=== PATIENT | female | born 1985 | race Caucasian/White ===

== ENCOUNTER 2025-03-24 23:48 | Emergency (ER) | payer MEDICAID ==
[~2025-03-24] VITALS: Ht 162.6 cm; Wt 74.0 kg
[2025-03-24 23:58] VITALS: O2SAT 100
[2025-03-25] MEDS: KETOROLAC 15MG/ML VIAL IM ONE (00:45)
[2025-03-25 01:14] LABS: CLARITY URINE CLEAR (CLEAR); COLOR URINE YELLOW (YELLOW); GLUCOSE URINE NEGATIVE (NEGATIVE); KETONES URINE NEGATIVE (NEGATIVE); LEUKOCYTE ESTERASE URINE NEGATIVE (NEGATIVE); NITRITE URINE NEGATIVE (NEGATIVE); OCCULT BLOOD URINE TRACE (NEGATIVE); PH URINE 5.5 (4.5-8.0); PROTEIN URINE NEGATIVE (NEGATIVE); SPECIFIC GRAVITY URINE 1.007 (1.005-1.030); UROBILINOGEN URINE 0.2 E.U./dL (0.2-1.0)
[2025-03-25] MEDS: ONDANSETRON HCL 4MG TABLET PO ONE (01:20)
[2025-03-25 01:49] LABS: BACTERIA URINE NONE SEEN; RBC URINE 0-2 /hpf (0-2); SQUAMOUS EPITHELIAL CELL URINE 1+ /lpf (RARE/1+); WBC URINE 0-2 /hpf (0-2)
[2025-03-25] MEDS ORDERED: CEPH500C2 MT (01:56)
[2025-03-25 02:10] VITALS: BP 129/77; PULSE 87; RESP 18; TEMP 36.8; O2SAT 100
== END 2025-03-25 02:15 | disposition home or self-care (01) ==
LOC: ER 23:48
DX: N39.0 Urinary tract infection, site not specified (principal); R10.A3 Flank pain, bilateral
CPT/HCPCS: 99283; 81025; 81003; 96372; J1885; Q0162

== ENCOUNTER 2025-04-24 16:56 | Emergency (ER) | payer MEDICAID ==
[~2025-04-24] VITALS: Ht 162.6 cm; Wt 73.0 kg
[~2025-04-24 16:56] MED LIST: CEPH500C2 MT
[2025-04-24 16:59] VITALS: TEMP 36.7; O2SAT 99
[2025-04-24 17:28] VITALS: O2SAT 98
[2025-04-24 22:09] VITALS: BP 123/70; PULSE 81; RESP 18
[2025-04-24] MEDS: ONDANSETRON 4MG ODT PO ONE (22:09)
[2025-04-24] MEDS: KETOROLAC 15MG/ML VIAL IM ONE (22:09)
[2025-04-24 22:19] LABS: BASOPHILS % 0.6 % (0.0-2.0); EOSINOPHILS % 1.6 % (0.0-5.0); HEMATOCRIT. 38.7 % (36.0-48.0); HEMOGLOBIN. 13.1 g/dL (12.0-16.0); LYMPHOCYTES % 36.5 % (20.0-50.0); MEAN PLATELET VOLUME 8.6 fl (7.4-10.4); MONOCYTES % 5.7 % (2.0-8.0); NEUTROPHILS % 55.6 % (40.0-76.0); PLATELET 292 x1000/uL (130-400); RED BLOOD CELL COUNT 4.32 mill/uL (4.2-5.4); RED CELL DISTRIBUTION WIDTH 13.7 % (11.6-14.6)
[2025-04-24 22:37] LABS: HCG SCREEN NEGATIVE
[2025-04-24 22:40] LABS: CREATININE 0.8 mg/dL (0.6-1.0); UREA NITROGEN BLOOD 10 mg/dL (9-23)
[2025-04-24 22:41] LABS: PROTEIN TOTAL 7.1 g/dL (6.0-8.3)
[2025-04-24 22:42] LABS: ASPARTATE AMINOTRANSFERASE 17 IU/L (<34); BILIRUBIN DIRECT 0.1 mg/dL (<=3.0); BILIRUBIN TOTAL 0.4 mg/dL (0.1-1.0)
[2025-04-24 22:45] LABS: CLARITY URINE CLEAR (CLEAR); COLOR URINE YELLOW (YELLOW); GLUCOSE URINE NEGATIVE (NEGATIVE); KETONES URINE NEGATIVE (NEGATIVE); LEUKOCYTE ESTERASE URINE NEGATIVE (NEGATIVE); NITRITE URINE NEGATIVE (NEGATIVE); OCCULT BLOOD URINE TRACE (NEGATIVE); PH URINE 6.0 (4.5-8.0); PROTEIN URINE NEGATIVE (NEGATIVE); SPECIFIC GRAVITY URINE 1.006 (1.005-1.030); UROBILINOGEN URINE 0.2 E.U./dL (0.2-1.0)
[2025-04-24 22:59] LABS: BACTERIA URINE 1+; SQUAMOUS EPITHELIAL CELL URINE RARE /lpf (RARE/1+); WBC URINE 0-2 /hpf (0-2)
[2025-04-24] MEDS ORDERED: IBUP-1455 MT (23:42)
[2025-04-24] MEDS ORDERED: ONDA-239 PO (23:42)
== END 2025-04-24 23:54 | disposition home or self-care (01) ==
LOC: ER 16:56
DX: N89.8 Other specified noninflammatory disorders of vagina (principal); M54.50 Low back pain, unspecified; R10.24 Suprapubic pain
CPT/HCPCS: 99283; 80076; 80048; 81003; 81025; 84703; 85025; 87210; 36415; 96372; J1885; Q0162